=== PATIENT | female | born 1950 | race Caucasian/White ===

== ENCOUNTER 2023-05-19 19:00 | Inpatient (IN) | payer OTHER, SELFPAY ==
[2023-05-19] VITALS (10 sets, daily range): BP systolic 83–147; BP diastolic 36–89; BMI 22.8; BMI 22.3
[2023-05-19 13:15] LABS: % Basophils 0.3 % (0-2); % Eosinophils 1.2 % (0-6); % Immature Granulocytes 0.4 % (0-0.5); % Lymphocytes 12.5 % (20.5-51.1); % Monocytes 10.5 % (1.7-9.3); % Neutrophils 75.1 % (42.2-75.2); Absolute Eosinophils 0.1 10^3/uL (0-0.7); Absolute Lymphocytes 1.2 10^3/uL (1.2-3.4); Absolute Neutrophils 6.9 10^3/uL (1.4-6.5); Hematocrit 32.5 % (37.0-47.0); Hemoglobin 11.7 g/dL (12.0-16.0); Mean Corpuscular Hgb 30.1 pg (27.0-31.0); Mean Corpuscular Volume 83.5 fL (81.0-99.0); Mean Platelet Volume 10.1 fL (7.4-10.4); Nucleated Red Blood Cells % 0 %; Platelet Count 205 10^3/uL (130-400); Red Blood Cell Count 3.89 10^6/uL (4.20-5.40); Red Cell Dist. Width 14.6 % (11.5-14.5); White Blood Cell Count 9.2 10^3/uL (4.8-10.8)
[2023-05-19 13:36] LABS: ALT (SGPT) 18 U/L (0-35); AST (SGOT) 21 U/L (14-36); Albumin 3.5 g/dl (3.5-5.0); Alkaline Phosphatase 88 U/L (38-126); Blood Urea Nitrogen 14 mg/dl (7-17); Calcium 9.3 mg/dl (8.4-10.2); Carbon Dioxide 28 mmol/L (22-30); Chloride 100 mmol/L (98-107); Estimated Creatinine Clearance 39 ml/min; Glucose 104 mg/dl (70-99); Potassium 3.9 mmol/L (3.5-5.1); Sodium 129 mmol/L (135-145); Total Bilirubin 1.7 mg/dl (0.2-1.3); Total Protein 5.9 g/dl (6.3-8.2); eGFR > 60.00
[2023-05-19] MEDS: NSS 1000 IV ×2 (13:36→20:41)
[2023-05-19] MEDS: OMNIPAQUE 50 ML PO (13:36)
[2023-05-19 13:58] LABS: Lactic Acid 0.9 mmol/L (0.7-2.0)
--- NOTE | 2023-05-19 14:41 | ED.GENMED ---
History of Present Illness
<Brendon Walsh Jr., PA-C - Last Filed: 05/19/23 18:04>
General
Chief Complaint: Rectal Bleeding
Source: patient and spouse
Exam Limitations: none
Time Seen by Provider: 05/19/23 13:03
Nursing documentation reviewed up to this point in time: agreed with
Travel History
Have you had any contact with someone who has COVID-19?: No
Do you have any symptoms of coronavirus? Fever > 100 degrees, chills, cough, shortness of breath, sore throat, loss of taste or smell, muscle aches, or headache?: No
History of Present Illness
History of Present Illness:
73-year-old female with past medical history of previous stroke, hypertension hyperlipidemia, anxiety presenting to the emergency department today with concerns of diarrhea over the past week also noticed blood streaking in the stool today. Patient
is on Eliquis. Denies significant abdominal pain has had some intermittent crampy discomfort. Denies any fevers nausea or vomiting.
Past History
<Brendon Walsh Jr., PA-C - Last Filed: 05/19/23 18:04>
Past History
ED Past Medical History: CVA, HTN and Other (Sleep apnea)
ED Past Surgical History:
Social History
Tobacco: Former smoker
Alcohol: Occasional
Drug: None
Living: with family
Employment: Employed
Family History
Family History: Other
Review of Systems
<ADALBERTO Mar Jr. Last Filed: 05/19/23 18:04>
Review of Systems
Allergies reviewed?: Yes
All Other Systems: ROS reviewed and negative except as documented in HPI and ROS
Phy Exam
<ADALBERTO Mar Jr. Last Filed: 05/19/23 18:04>
Physical Exam
Physical Exam:
GENERAL: Alert , in no apparent distress
EYE: pupils equal and reactive
NECK: Supple, no significant adenopathy.
ENT: o/p clr, mmm.
CARDIAC: Regular rate and rhythm .
LUNGS: Clear breath sounds bilaterally, no acute respiratory distress, no wheezes/rales/rhonchi
ABDOMEN: Rectal examination revealing light brown stool with pink tinge positive for guaiac. Soft, without focal tenderness, no r/g, no cvat
NEUROLOGICAL: Alert and oriented, no focal neuro deficits
SKIN: Warm and dry, skin intact.
MUSCULOSKELETAL: No edema, well perfused.
PSYCH: Normal and appropriate interaction.
Course
<Brendon Walsh Jr., PA-Alida - Last Filed: 05/19/23 18:04>
Orders/Labs/Results
Orders:
Orders
05/19/23 13:06
Complete Blood Count/With Diff Urgent
Comprehensive Metabolic Panel Urgent
05/19/23 13:31
CT Abd/pel W Iv And Oral Contr Urgent
Comment:
Reason For Exam: abd pain bloody diarrhea
Iohexol [Omnipaque] See Protocol PO NOW STA
05/19/23 13:32
0.9% Sodium Chloride 1000 ml [Nss] 1,000 ml IV BOLUS
05/19/23 13:34
Type+Screen Urgent
Lactic Acid Urgent
05/19/23 14:58
Urinalysis Reflex To Culture Urgent
Date Specimen was Collected: 05/19/23
Time Specimen was Collected: 14:57
Urine Microscopic Reflex Cult Urgent
05/19/23 15:07
C DIFF [C difficile Antigen & Toxins] Urgent
KALYAN Source: Feces/Stool
Specimen Description:
Date Specimen was Collected: 05/19/23
Time Specimen was Collected: 15:05
Stool Culture Urgent
KALYAN Source: Feces/Stool
Specimen Description:
Date Specimen was Collected: 05/19/23
Time Specimen was Collected: 15:05
05/19/23 17:51
Zosyn 3.375 grams IVPB NOW Piperacillin/Tazo 3.375 Gram [Zosyn] 3.375 gram in 50 ml IV NOW
Abnormal Lab Results
05/19/23 05/19/23
13:06 14:58
RBC 3.89 L 10^6/uL
(4.20-5.40)
Hgb 11.7 L g/dL
(12.0-16.0)
Hct 32.5 L %
(37.0-47.0)
RDW 14.6 H %
(11.5-14.5)
Absolute Neuts (auto) 6.9 H 10^3/uL
(1.4-6.5)
Absolute Monos (auto) 1.0 H 10^3/uL
(0.1-0.6)
Lymphocytes % 12.5 L %
(20.5-51.1)
Monocytes % 10.5 H %
(1.7-9.3)
Sodium 129 L mmol/L
(135-145)
Glucose 104 H mg/dl
(70-99)
Total Bilirubin 1.7 H mg/dl
(0.2-1.3)
Total Protein 5.9 L g/dl
(6.3-8.2)
Ur Occult Blood Reflex Trace A
(Negative)
Urine Bacteria (Reflex) Few A
(Negative)
05/19/23 13:06
05/19/23 13:06
Vital Signs
Initial and Last Documented VS:
Initial Vital Signs
Temp Pulse Resp BP Pulse Ox
98.7 F 76 14 99/61 97
05/19/23 12:57 05/19/23 12:57 05/19/23 12:57 05/19/23 12:57 05/19/23 12:57
Last Documented Vital Signs
Temp Pulse Resp BP Pulse Ox
98.7 F 77 10 139/89 99
05/19/23 12:57 05/19/23 15:45 05/19/23 17:31 05/19/23 17:31 05/19/23 17:31
<David Velez, DO - Last Filed: 05/19/23 14:46>
Orders/Labs/Results
Orders:
Orders
05/19/23 13:06
Complete Blood Count/With Diff Urgent
Comprehensive Metabolic Panel Urgent
05/19/23 13:31
CT Abd/pel W Iv And Oral Contr Urgent
Comment:
Reason For Exam: abd pain bloody diarrhea
Iohexol [Omnipaque] See Protocol PO NOW STA
05/19/23 13:32
0.9% Sodium Chloride 1000 ml [Nss] 1,000 ml IV BOLUS
05/19/23 13:34
Type+Screen Urgent
Lactic Acid Urgent
05/19/23 14:58
Urinalysis Reflex To Culture Urgent
Date Specimen was Collected: 05/19/23
Time Specimen was Collected: 14:57
Urine Microscopic Reflex Cult Urgent
05/19/23 15:07
C DIFF [C difficile Antigen & Toxins] Urgent
KALYAN Source: Feces/Stool
Specimen Description:
Date Specimen was Collected: 05/19/23
Time Specimen was Collected: 15:05
Stool Culture Urgent
KALYAN Source: Feces/Stool
Specimen Description:
Date Specimen was Collected: 05/19/23
Time Specimen was Collected: 15:05
05/19/23 17:51
Zosyn 3.375 grams IVPB NOW Piperacillin/Tazo 3.375 Gram [Zosyn] 3.375 gram in 50 ml IV NOW
Abnormal Lab Results
05/19/23 05/19/23
13:06 14:58
RBC 3.89 L 10^6/uL
(4.20-5.40)
Hgb 11.7 L g/dL
(12.0-16.0)
Hct 32.5 L %
(37.0-47.0)
RDW 14.6 H %
(11.5-14.5)
Absolute Neuts (auto) 6.9 H 10^3/uL
(1.4-6.5)
Absolute Monos (auto) 1.0 H 10^3/uL
(0.1-0.6)
Lymphocytes % 12.5 L %
(20.5-51.1)
Monocytes % 10.5 H %
(1.7-9.3)
Sodium 129 L mmol/L
(135-145)
Glucose 104 H mg/dl
(70-99)
Total Bilirubin 1.7 H mg/dl
(0.2-1.3)
Total Protein 5.9 L g/dl
(6.3-8.2)
Ur Occult Blood Reflex Trace A
(Negative)
Urine Bacteria (Reflex) Few A
(Negative)
05/19/23 13:06
05/19/23 13:06
Vital Signs
Initial and Last Documented VS:
Initial Vital Signs
Temp Pulse Resp BP Pulse Ox
98.7 F 76 14 99/61 97
05/19/23 12:57 05/19/23 12:57 05/19/23 12:57 05/19/23 12:57 05/19/23 12:57
Last Documented Vital Signs
Temp Pulse Resp BP Pulse Ox
98.7 F 77 10 139/89 99
05/19/23 12:57 05/19/23 15:45 05/19/23 17:31 05/19/23 17:31 05/19/23 17:31
<Brendon Walsh Jr., PA-C - Last Filed: 05/19/23 18:04>
MDM/Problems Addressed
MDM/Problems Addressed:
73-year-old female presenting to the emergency department today with concerns of ongoing diarrhea over the past week. Seemingly somewhat improving had multiple episodes a day but this morning noticed blood in her stool. Denies significant pain at
this point has had some mild intermittent cramping. Denies any lightheadedness on arrival here vital signs showing slightly low blood pressure in the 90s over 60s but otherwise vital signs are normal. Patient generally well-appearing. Abdominal
examination benign. Patient's stool was light brown with pink tinge guaiac positive. CT scan showing pancolitis negative for the initial C. difficile testing sodium 129. Patient treated with antibiotics empirically and will be admitted for
further monitoring.
<Brendon Walsh Jr., PA-C - Last Filed: 05/19/23 18:04>
*Critical Care Note
Total Time (30-74mins, 75-104mins- exclusive of procedures): Not Applicable
ED Attending Note
<Brendon Walsh Jr., PA-C - Last Filed: 05/19/23 18:04>
-
Portions of this chart may have been created with voice recognition software.� Occasional wrong word or��sound alike� substitutions may have occurred due to the inherent limitations of voice recognition software.
<David Velez DO - Last Filed: 05/19/23 14:46>
ED Attending Note
Patient seen and examined by attending physician: Yes
I performed the substantive portion of visit, reviewed & personally made and approve the management plan that is documented in note by myself or DANIS.: Yes
ED Attending Note:
I have seen and evaluated the patient with a [id number] encounter. I have spoken to the advance practicer provider and involved in the medical history, the physical exam, medical decision making.
Evaluation and management service: agree unless noted differently below.
Results interpretation: agree unless noted differently below.
Focused HPI: 73-year-old female presenting with diarrhea for the past week. Patient is now noticing evidence of blood in the diarrhea. She denies any abdominal pain or fevers
Physical exam: Sitting in bed comfortably. Mildly dry mucous membranes. No significant abdominal tenderness noted
Medical Decision Making: Given her history, will obtain CT abdomen/pelvis. Hemoglobin stable. Will obtain stool studies
Discharge Plan
Departure
Patient Disposition: Admit
Date of Disposition: 05/19/23
Time of Disposition: 18:03
Admit to: Med/Surg
Admit to doctor: Christian
Presentation/result/management discussed w/ accepting MD/DO: Hospitalist
Patient with high blood pressure during this ER visit?: No
Condition: Good
Covid-19: Not Applicable
Discharge Problem:
Pancolitis, GI bleed
Prescriptions:
No Action
polyethylene glycol 3350 17 gram Powder In Packet
17 g PO DAILY PRN (Reason: constipation)
miconazole nitrate 2 % Cream
1 applic TOPICAL BID PRN (Reason: irritation)
metoprolol succinate 50 mg Tablet Extended Release 24 Hr
50 mg PO DAILY
loperamide [Imodium A-D] 2 mg Tablet
2 mg PO Q8HPRN PRN (Reason: loose stools)
guaifenesin [Tussin] 100 mg/5 mL Liquid
200 mg PO Q4H PRN (Reason: cough)
hydrocortisone [Proctozone-HC] 2.5 % Cream With Perineal Applicator
1 applic ID .2-4 TIMES A DAY PRN (Reason: hemorrhoids)
lorazepam 0.5 mg Tablet
0.5 mg PO HS
magnesium hydroxide [Milk of Magnesia] 400 mg/5 mL Suspension
30 ml PO DAILY PRN (Reason: if no BM for 3 days)
calcium carbonate [Oyster Shell Calcium 500] 500 mg calcium (1,250 mg) Tablet
500 mg PO DAILY
trazodone 150 mg Tablet
150 mg PO HS
docusate sodium 100 mg Capsule
100 mg PO BID PRN (Reason: constipation)
oxycodone 5 mg Tablet
5 mg PO Q6H PRN (Reason: moderate pain)
Patient Comments:
05/19/2023, for up to 5 days.
escitalopram oxalate 10 mg Tablet
10 mg PO DAILY
cholecalciferol (vitamin D3) 25 mcg (1,000 unit) Tablet
25 mcg PO DAILY
Myrbetriq 50 mg Tablet Extended Release 24 Hr
50 mg PO DAILY
Eliquis 5 mg Tablet
5 mg PO Q12H@0800,2100
naloxone 4 mg/actuation [place],Non-Aerosol
1 spray INTRANASAL Q2M PRN (Reason: opioid overdose)
atorvastatin 80 MG tablet
80 mg PO HS
acetaminophen 325 MG tablet
650 mg PO Q6HPRN MDD 3000 mg PRN (Reason: mild pain)
cyanocobalamin (vitamin B-12) 1,000 MCG tablet
1,000 mcg PO DAILY Qty: 90 0RF
losartan 100 MG tablet
100 mg PO DAILY Qty: 90 0RF
melatonin 5 MG tablet
5 mg PO HS Qty: 90 0RF
Referrals:
Jolly Paul PA-C [Family Provider] -
Interventions
Interventions:
*Risk Screen - Suicide Last Done: 05/19/23 12:57
*General Assessment Last Done: 05/19/23 12:57
*Neglect/Abuse Screening Last Done: 05/19/23 12:57
ED- Fall Risk Assessment Last Done: 05/19/23 13:03
IG-Ntgxyt-Emxwuzuoou Assessment Last Done: 05/19/23 13:01
ED- Cardiac Assessment Last Done: 05/19/23 13:01
ED- Pulmonary Assessment Last Done: 05/19/23 13:01
[2023-05-19 15:12] LABS: Urine Albumin Negative (Neg - Trace); Urine Bilirubin Negative (Negative); Urine Character Clear (Clear); Urine Color Straw; Urine Glucose Negative (Negative); Urine Ketone Negative (Negative); Urine Leukocyte Negative (Negative); Urine Nitrite Negative (Negative); Urine Occult Blood Trace (Negative); Urine Specific Gravity 1.005 (<1.030); Urine Urobilinogen Negative (Neg - 1+)
[2023-05-19 15:19] LABS: Urine Bacteria Few (Negative); Urine Red Blood Cell 0-2 /HPF (0-2); Urine Squamous Cell 0-2 /LPF (Few); Urine White Cell 0-2 /HPF (0-5)
[2023-05-19] MEDS: ZOSYN 50 IV (18:01)
--- NOTE | 2023-05-19 18:24 | HPS.HSE ---
Family Physician
-
Family Physician: Jolly Paul PA-C
Chief Complaint
-
Diarrhea, bloody stools
History of Present Illness
73-year-old female here with diarrhea for the past week with associated bloody stools. Anorexia. She is a very poor historian.
Lives in assisted living facility. Denies abdominal pain, nausea or vomiting.
Medical History
Past Medical History
Past Medical History: Reports Other
Additional Past Medical History:
Paroxysmal atrial fibrillation
Essential hypertension
Stroke with left hemiparesis
Hyperlipidemia
CHANELLE
Colon polyps
Anxiety disorder
Urgent incontinence
Past Surgical History: Reports
Social History
Tobacco: Former Smoker
Alcohol: None
Drug: None
Family History
Family History: Not pertinent
Allergies / Home Medications
Allergies reflects when Allergies were last updated in [employer].
Home Medications with original date entered in [employer]
Allergy/Medication List:
Allergies
Allergy/AdvReac Type Severity Reaction Status Date / Time
No Known Allergies Allergy Verified 01/28/21 23:37
Home Medications
cyanocobalamin (vitamin B-12) 1,000 mcg tablet 1,000 mcg PO DAILY #90 tabs 12/25/20
losartan 100 mg tablet 100 mg PO DAILY #90 tabs 12/25/20
melatonin 5 mg tablet 5 mg PO HS #90 tabs 12/25/20
acetaminophen 325 mg tablet 650 mg PO Q6HPRN PRN mild pain 05/19/23
apixaban 5 mg tablet (Eliquis) 5 mg PO Q12H@0800,2100 05/19/23
atorvastatin 80 mg tablet 80 mg PO HS 05/19/23
calcium carbonate 500 mg calcium (1,250 mg) tablet (Oyster Shell Calcium 500) 500 mg PO DAILY 05/19/23
cholecalciferol (vitamin D3) 25 mcg (1,000 unit) tablet 25 mcg PO DAILY 05/19/23
docusate sodium 100 mg capsule 100 mg PO BID PRN constipation 05/19/23
escitalopram oxalate 10 mg tablet 10 mg PO DAILY 05/19/23
guaifenesin 100 mg/5 mL oral liquid (Tussin) 200 mg PO Q4H PRN cough 05/19/23
hydrocortisone 2.5 % topical cream with perineal applicator (Proctozone-HC) 1 applic LA .2-4 TIMES A DAY PRN hemorrhoids 05/19/23
loperamide 2 mg tablet (Imodium A-D) 2 mg PO Q8HPRN PRN loose stools 05/19/23
lorazepam 0.5 mg tablet 0.5 mg PO HS 05/19/23
magnesium hydroxide 400 mg/5 mL oral suspension (Milk of Magnesia) 30 ml PO DAILY PRN if no BM for 3 days 05/19/23
metoprolol succinate 50 mg tablet,extended release 24 hr 50 mg PO DAILY 05/19/23
miconazole nitrate 2 % topical cream 1 applic topical BID PRN irritation 05/19/23
mirabegron 50 mg tablet,extended release 24 hr (Myrbetriq) 50 mg PO DAILY 05/19/23
naloxone 4 mg/actuation nasal spray 1 spray intranasal Q2M PRN opioid overdose 05/19/23
oxycodone 5 mg tablet 5 mg PO Q6H PRN moderate pain 05/19/23
polyethylene glycol 3350 17 gram oral powder packet 17 g PO DAILY PRN constipation 05/19/23
trazodone 150 mg tablet 150 mg PO HS 05/19/23
Review of Systems
-
History Source: Patient
A 12 point ROS was completed and negative except as noted: Yes
Abdomen/GI: Reports Diarrhea and Bloody Stools
Physical Exam
Vital Signs
Vital Signs
Temp Pulse Resp BP Pulse Ox
98.7 F 71 10 104/65 98
05/19/23 12:57 05/19/23 18:00 05/19/23 18:00 05/19/23 18:00 05/19/23 18:00
Physical Exam
General: Well Developed, Well Nourished, No Apparent Distress and Comfortable
HEENT: NormoCephalic, Anicteric and Moist mucous membranes
Respiratory: Clear
Cardiac: S1/S2 and Regular Rhythm
Breast: Deferred by me
GI: Soft, Non Tender and Non Distended
Genito-urinary: Deferred by me
Musculoskeletal: No Clubbing, No Cyanosis and No Edema
Skin: Warm and Dry
Neuro: AO x 3
Hematologic/Lymphatic: No Lymphadenopathy
Psych: Calm
Laboratory Results
-
05/19/23 13:06
05/19/23 13:06
Laboratory Results
Lactic Acid 0.9 mmol/L (0.7-2.0) 05/19/23 13:34
Total Bilirubin 1.7 mg/dl (0.2-1.3) H 05/19/23 13:06
AST 21 U/L (14-36) 05/19/23 13:06
ALT 18 U/L (0-35) 05/19/23 13:06
Alkaline Phosphatase 88 U/L (38-126) 05/19/23 13:06
Impression/Plan
-
Acute colitis -likely infectious in nature. Less likely to be inflammatory. Admit to telemetry, clear liquid diet, continue antibiotics, check stool studies. Stool for C. difficile toxin negative.
CT abdomen pelvis shows moderate pancolitis.
Incidental subpleural left lower lobe groundglass pulmonary nodule measuring 6 mm. Will need repeat noncontrast CT in 6 to 12 months as an outpatient.
Acute lower GI bleed -due to acute colitis. Hemodynamically stable after IV fluid administration in the emergency room. Presented initially hypotensive.
Hyponatremia -likely hypovolemic. Normal saline IV fluids ordered. Recheck labs tomorrow.
Paroxysmal atrial fibrillation -hold Eliquis tonight in light of GI bleed.
Chronic normocytic anemia -currently hemoglobin appears to be at baseline. Monitor for now.
History of stroke with left hemiparesis -associated ambulatory dysfunction. Consult PT/OT. She resides at an assisted living facility.
Essential hypertension -stable.
Hyperlipidemia -continue Lipitor.
Full code
Updated patient's son at the bedside.
[2023-05-19] MEDS: ATIVAN 0.5 MG PO (21:05)
[2023-05-19] MEDS: DESYREL 150 MG PO (21:05)
[2023-05-19] MEDS: MELATONIN 5 MG PO (21:05)
[2023-05-19] MEDS: LIPITOR 80 MG PO (21:06)
[2023-05-19] MEDS: NSS 250 IV (23:39)
[2023-05-19 23:59] LABS: Hematocrit 28.3 % (37.0-47.0); Hemoglobin 10.2 g/dL (12.0-16.0)
[2023-05-20] VITALS (82 sets, daily range): BP systolic 72–163; BP diastolic 34–90; PULSE 77; BMI 22.6
[2023-05-20] MEDS: ZOSYN 50 IV ×5 (01:16→23:53)
[2023-05-20] MEDS: NSS 250 IV (01:42)
[2023-05-20 02:12] LABS: Hematocrit 27.4 % (37.0-47.0); Hemoglobin 9.8 g/dL (12.0-16.0); Mean Corp Hgb Conc. 35.8 g/dL (33.0-37.0); Mean Corpuscular Hgb 29.8 pg (27.0-31.0); Mean Corpuscular Volume 83.3 fL (81.0-99.0); Mean Platelet Volume 9.8 fL (7.4-10.4); Platelet Count 177 10^3/uL (130-400); Red Blood Cell Count 3.29 10^6/uL (4.20-5.40); Red Cell Dist. Width 14.4 % (11.5-14.5); White Blood Cell Count 5.9 10^3/uL (4.8-10.8)
[2023-05-20 02:23] LABS: Lactic Acid 0.6 mmol/L (0.7-2.0)
[2023-05-20 02:28] LABS: ALT (SGPT) 12 U/L (0-35); AST (SGOT) 15 U/L (14-36); Albumin 2.4 g/dl (3.5-5.0); Alkaline Phosphatase 67 U/L (38-126); Blood Urea Nitrogen 15 mg/dl (7-17); Calcium 8.6 mg/dl (8.4-10.2); Carbon Dioxide 23 mmol/L (22-30); Chloride 103 mmol/L (98-107); Estimated Creatinine Clearance 30 ml/min; Glucose 68 mg/dl (70-99); Potassium 3.8 mmol/L (3.5-5.1); Sodium 135 mmol/L (135-145); Total Bilirubin 1.7 mg/dl (0.2-1.3); Total Protein 4.5 g/dl (6.3-8.2)
[2023-05-20] MEDS: ProAmatine 10 MG PO ×4 (03:08→17:17)
--- NOTE | 2023-05-20 03:34 | W.PN.UPDATE ---
Update Note
Progress Note Update
At 2330 RN notified PLODDING OPERATOR of low BP 81/44 HR 64, Patient slightly drowsy, denies dizziness, Received Ativan, Trazodone, and melatonin at HS prior low BP. stable H/H. received NSS IV bolus 500CC, Repeat Labs done, lactic acid wnl. HH may be diluted at
MN. no active bleeding. Creatinine 1.2, will continue NSS 125cc/hr. will hold ARB's, Hold parameters on Metoprolol, Will add Midodrine 10mg PO stat. Also advised RN to give apple juice to patient as noted blood sugar noted at 68.
At 0400 BP noted to be 85/35 MAP 52, will upgrade patient to IMU, will place patient on Levophed drip. Nursing parachute supervisor made aware.
--- NOTE | 2023-05-20 04:26 | PTCARENOTE ---
Patient with hypotension throughout the night. Patient was receiving fluids 80ml/hr NSS. Patient is denies abdominal pain, chest pain, dizziness, or any symptoms, just drowsy but AAOx3 and talking with this nurse. Discussed with [employer]. Ordered two
boluses of NSS 250ml, given see MAR. Blood pressure without much change into the 80s/40s. IVF increased from 80 to 125 ml/hr per order. [employer] ordered midodrine 10mg PO. See MAR. Recheck blood pressure an hour later, still in 70-80s/40s. Patient being
transferred to IMU level to be placed on levophed.
[2023-05-20 04:47] LABS: Glucose - Point of Care 99 mg/dl (70-99)
[2023-05-20] MEDS: LEVOPHED 250 IV ×2 (05:15→21:44)
--- NOTE | 2023-05-20 05:15 | PTCARENOTE ---
Rec'd pt from 2 N via bed on monitor accomp by RN, oriented to routine, CHG bath done, Left side weak from previous CVA, SR/ SB, levophed gtt started at 2 suzi- to keep MAP > 65- see flow sheet for titrations, + pulses, skin warm/dry, RA, lungs decr
in bases, sat 95, + bowel sounds, rectal trmpet inserted for liquid brown stool, HNV- just was str cathed on floor
[2023-05-20] MEDS: NSS 1000 IV ×3 (07:43→17:16)
--- NOTE | 2023-05-20 07:53 | PTCARENOTE ---
Pt's contact Rufino notified that she was upgraded and is in room 3760. He is aware her blood pressure was persistently low and require IVF and Norepinephrine drip.
--- NOTE | 2023-05-20 08:15 | W.PN.HOSP.TC ---
Today's Communication/Plan
-
Continue IV fluids
Advance diet to full liquids
Midodrine [id number]
Wean Levophed
Assessment / Plan
Assessment / Plan
Gen-AAOx3, NAD
HEENT-NC, AT, anicteric, clear oral mm
Neck-supple
CV-reg, no M, +S1/S2
Lungs-clear B/L
Abd-soft, NT, ND
Ext-no edema
Musculoskeletal-no cyanosis, clubbing
Skin-warm and dry
Neuro-grossly non-focal
Psych-calm, cooperative
Hypovolemic shock -due to GI losses due to acute colitis. Transferred to IMU last night on low-dose Levophed. Try to wean Levophed off. Start midodrine [id number]. Discussed with nursing. Continue IV fluids. Blood pressure overall
improving. Not tachycardic.
Acute colitis -likely infectious in nature.� Less likely to be inflammatory.� Stool for C. difficile toxin negative. Stool culture pending.
CT abdomen pelvis shows moderate pancolitis.
Incidental subpleural left lower lobe groundglass pulmonary nodule measuring 6 mm.� Will need repeat noncontrast CT in 6 to 12 months as an outpatient.
Acute lower GI bleed -due to acute colitis.� Last colonoscopy was March 2019, showed multiple polyps. Path report came back with tubular adenomas as well as hyperplastic polyp. Will refer to GI after discharge.
Acute blood loss anemia -due to acute GI bleed due to acute colitis. Hemoglobin 9.8 this morning. Monitor for now. She does have baseline chronic anemia, normocytic.
Hyponatremia -likely hypovolemic.� Sodium improved.
Paroxysmal atrial fibrillation -hold Eliquis for acute GI bleed, acute anemia.
History of stroke with left hemiparesis -associated ambulatory dysfunction.� Consult PT/OT.� She resides at an assisted living facility.
Essential hypertension -stable. Hold antihypertensives for hypotension.
Hyperlipidemia -continue Lipitor.
Full code
Anticipated Discharge: 24 - 48 hours
Subjective/Interval History
-
Date of Service: May 20, 2023
Patient seen and examined. No complaints.
Objective Data
-
Labs:
Laboratory Results
05/19/23 05/20/23 05/20/23
23:53 02:00 02:00
WBC Cancelled 5.9
Hgb 10.2 L Cancelled
Hct 28.3 L
Plt Count
PT
INR
APTT
Sodium
Potassium
Chloride
Carbon Dioxide
BUN
Creatinine
Glucose
Calcium
Total Bilirubin
AST
ALT
Alkaline Phosphatase
05/20/23 05/20/23 05/20/23
02:00 02:00 02:00
WBC
Hgb 9.8 L
Hct Cancelled 27.4 L
Plt Count Cancelled 177
PT
INR
APTT
Sodium Cancelled
Potassium
Chloride
Carbon Dioxide
BUN
Creatinine
Glucose
Calcium
Total Bilirubin
AST
ALT
Alkaline Phosphatase
05/20/23 05/20/23 05/20/23
02:00 02:00 02:00
WBC
Hgb
Hct
Plt Count
PT
INR
APTT
Sodium 135
Potassium Cancelled 3.8
Chloride Cancelled 103
Carbon Dioxide Cancelled
BUN
Creatinine
Glucose
Calcium
Total Bilirubin
AST
ALT
Alkaline Phosphatase
05/20/23 05/20/23 05/20/23
02:00 02:00 02:00
WBC
Hgb
Hct
Plt Count
PT
INR
APTT
Sodium
Potassium
Chloride
Carbon Dioxide 23
BUN Cancelled 15
Creatinine Cancelled 1.2 H
Glucose Cancelled
Calcium
Total Bilirubin
AST
ALT
Alkaline Phosphatase
05/20/23 05/20/23 05/20/23
02:00 02:00 02:00
WBC
Hgb
Hct
Plt Count
PT
INR
APTT
Sodium
Potassium
Chloride
Carbon Dioxide
BUN
Creatinine
Glucose 68 L
Calcium Cancelled 8.6
Total Bilirubin Cancelled 1.7 H
AST Cancelled
ALT
Alkaline Phosphatase
05/20/23 05/20/23 05/20/23
02:00 02:00 02:00
WBC
Hgb
Hct
Plt Count
PT
INR
APTT
Sodium
Potassium
Chloride
Carbon Dioxide
BUN
Creatinine
Glucose
Calcium
Total Bilirubin
AST 15
ALT Cancelled 12
Alkaline Phosphatase Cancelled 67
05/20/23
08:00
WBC Cancelled
Hgb Cancelled
Hct Cancelled
Plt Count Cancelled
PT Pending
INR Pending
APTT Pending
Sodium Cancelled
Potassium Cancelled
Chloride Cancelled
Carbon Dioxide Cancelled
BUN Cancelled
Creatinine Cancelled
Glucose Cancelled
Calcium Cancelled
Total Bilirubin
AST
ALT
Alkaline Phosphatase
Vital Signs:
Vital Signs
Temp Pulse Resp BP Pulse Ox
98.8 F 58 14 120/53 97
05/20/23 05:34 05/20/23 07:45 05/20/23 07:45 05/20/23 07:45 05/20/23 07:45
I&O
05/19/23 05/20/23 05/21/23
06:59 06:59 06:59
Intake Total 197.5 / 360.0 162.5 / 162.5
Output Total 500 / 500
Balance -302.5 / -140.0 162.5 / 162.5
Review of Systems
-
History Source: Patient
All other systems: Reviewed and negative
--- NOTE | 2023-05-20 08:45 | PTCARENOTE ---
Received pt in Enhanced precautions. SHe is awake and alert. Slight slurred speech, however her oral mucosa is dry. Right FA#20g protective catheter with Levophed and right hand #22g protective catheter with 0.9NSS. She has left hemiparesis. She
stated she can do leg lifts but dorene able to bend her leg herself. She is dependent on her right U/E for ADL's. Unable to palpate her left DP pulse but able to palpate her Left PT pulse. Capillary refill slightly delayed on her L/E's. Breath sounds
CTA. Hyperactive BSX4. Nasal trumpet to rectum draining liquid brown stool. Calazime cream applied. Heels elevated on pillows. Repositioned. Discussed the plan of care with Dr. Gonzales. Pt is informed of the plan of care. Safe environment
maintained.
[2023-05-20] MEDS: DETROL LA 4 MG PO (09:48)
[2023-05-20] MEDS: VITAMIN B-12 1000 MCG PO (09:48)
[2023-05-20] MEDS: VITAMIN D3 (cholecalciferol) 25 MCG PO (09:48)
[2023-05-20] MEDS: OSCAL CAL 500 500 MG PO (09:48)
[2023-05-20] MEDS: LEXAPRO 10 MG PO (09:48)
--- NOTE | 2023-05-20 11:00 | PTCARENOTE ---
No changes, Lungs remain CTA and diminished in the bases. Nasal trumpet MD intact. No liquid BM at this time.Tolerated full liquid diet. Safe environment maintained.
--- NOTE | 2023-05-20 12:22 | CM ---
CM following re: discharge planning.
Discussed in rounds, reviewed pt's chart, met with pt.
Pt is a 73 year old female, admitted with primary dx of Acute Colitis.
Pt reports she has been living at [facility] since 2011, has 5 living children, daughter due to Leucemia. Emotional support offered and provided. Pt reports she mostly uses a wheelchair, has a walker, able to transfer herself from a
bed to a chair, whealing herself to the bathroom and calling call Jara when she needs help. Pt reports she has been receiving private PT sessions. Pt made a strong request she will not go to any SNF and she made it very clear her plan is to return
back to [facility] with VN services and private PT.
PCP: Estrellita Hoffman
Pharmacy: [facility].
D/C plan: pt requested returning back to [facility] with VN services and resumptions of private PT.
CM will follow with discharge plan updates as hospitalization progresses
[2023-05-20] MEDS: LOVENOX 30 MG SC (17:17)
--- NOTE | 2023-05-20 18:23 | PTCARENOTE ---
Diarrhea subsiding. Nasal trumpet removed. Pericare given and purwick placed. Pt's son brought her Dennis-walker in from home. They were updated on the plan of care and the possibility of moving down the gaming to IMU.
--- NOTE | 2023-05-20 20:00 | PTCARENOTE ---
Assumed care of patient at 1900. Pt. currently in bed. Awake, alert, and oriented. Denies any pain or discomfort at this time. Cardiac rhythm is sinus. Levophed gtt infusing to maintain MAP >65. Pt. currently on room air. Lungs sound diminished.
Full liquid diet ordered, pt. has good appetite. Purewick in place, pt. voiding without issue. Skin as documented. Discussed plan of care. Vital signs stable at this time.
[2023-05-20] MEDS: LIPITOR 80 MG PO (20:59)
[2023-05-20] MEDS: ATIVAN 0.5 MG PO (20:59)
[2023-05-20] MEDS: DESYREL 150 MG PO (20:59)
[2023-05-20] MEDS: MELATONIN 5 MG PO ×2 (20:59)
[2023-05-21] VITALS (22 sets, daily range): BP systolic 80–149; BP diastolic 49–80; BMI 22.9
--- NOTE | 2023-05-21 00:09 | PTCARENOTE ---
Pt. assessment unchanged. Levophed gtt infusing to maintain MAP >65. Pt. appears to be sleeping comfortably. Vital signs stable at this time.
--- NOTE | 2023-05-21 04:00 | PTCARENOTE ---
Pt. assessment remains unchanged. Levophed gtt infusing. Will draw AM labs. Vital signs stable at this time.
[2023-05-21 05:00] LABS: % Basophils 0.2 % (0-2); % Eosinophils 3.1 % (0-6); % Immature Granulocytes 0.3 % (0-0.5); % Lymphocytes 34.4 % (20.5-51.1); % Monocytes 8.2 % (1.7-9.3); % Neutrophils 53.8 % (42.2-75.2); Absolute Eosinophils 0.2 10^3/uL (0-0.7); Absolute Monocytes 0.5 10^3/uL (0.1-0.6); Absolute Neutrophils 3.1 10^3/uL (1.4-6.5); Hematocrit 28.5 % (37.0-47.0); Hemoglobin 9.9 g/dL (12.0-16.0); Mean Corp Hgb Conc. 34.7 g/dL (33.0-37.0); Mean Corpuscular Hgb 29.8 pg (27.0-31.0); Mean Corpuscular Volume 85.8 fL (81.0-99.0); Nucleated Red Blood Cells % 0 %; Platelet Count 186 10^3/uL (130-400); Red Blood Cell Count 3.32 10^6/uL (4.20-5.40); Red Cell Dist. Width 14.7 % (11.5-14.5); White Blood Cell Count 5.8 10^3/uL (4.8-10.8)
[2023-05-21 05:27] LABS: ALT (SGPT) 14 U/L (0-35); AST (SGOT) 21 U/L (14-36); Albumin 2.5 g/dl (3.5-5.0); Alkaline Phosphatase 61 U/L (38-126); Blood Urea Nitrogen 9 mg/dl (7-17); Calcium 8.1 mg/dl (8.4-10.2); Carbon Dioxide 25 mmol/L (22-30); Chloride 111 mmol/L (98-107); Estimated Creatinine Clearance 39 ml/min; Glucose 105 mg/dl (70-99); Potassium 3.6 mmol/L (3.5-5.1); Sodium 136 mmol/L (135-145); Total Protein 4.7 g/dl (6.3-8.2); eGFR > 60.00
[2023-05-21] MEDS: ZOSYN 50 IV ×4 (05:57→23:57)
--- NOTE | 2023-05-21 07:36 | W.PN.HOSP.TC ---
Addendum entered and electronically signed by Kaushik Gonzales DO 05/21/23 17:00:
I updated patient's son Rufino on the phone. All questions answered.
Anticipate discharge tomorrow if she remains stable. Will be going back to her assisted living facility. Patient not interested in SNF as per case management note. Rufino will arrange for transportation.
Addendum entered and electronically signed by Kaushik Gonzales DO 05/21/23 11:59:
Yes, GI bleed is related to/exacerbated by Eliquis
Original Note:
Today's Communication/Plan
-
Resume Eliquis
Advance diet as tolerated
Transfer to telemetry
Assessment / Plan
Assessment / Plan
Gen-AAOx3, NAD
HEENT-NC, AT, anicteric, clear oral mm
Neck-supple
CV-reg, no M, +S1/S2
Lungs-clear B/L
Abd-soft, NT, ND
Ext-no edema
Musculoskeletal-no cyanosis, clubbing
Skin-warm and dry
Neuro-grossly non-focal
Psych-calm, cooperative
Hypovolemic shock -due to GI losses due to acute colitis. Off vasopressors. Continue midodrine. Blood pressure relatively low while sleeping, does improve when she is awake according to nursing. Can transfer out of IMU today.
Acute colitis -likely infectious in nature.� Less likely to be inflammatory.� Stool for C. difficile toxin negative. Stool culture pending.
CT abdomen pelvis shows moderate pancolitis. Tolerating full liquid diet. Advance to low residue as tolerated.
Incidental subpleural left lower lobe groundglass pulmonary nodule measuring 6 mm.� Will need repeat noncontrast CT in 6 to 12 months as an outpatient.
Acute lower GI bleed -due to acute colitis.� Last colonoscopy was March 2019, showed multiple polyps. Path report came back with tubular adenomas as well as hyperplastic polyp. Will refer to GI after discharge.
Acute blood loss anemia -due to acute GI bleed due to acute colitis. Hemoglobin stable at 9.9 this morning. Monitor for now. She does have baseline chronic anemia, normocytic.
Hyponatremia -likely hypovolemic.� Sodium improved.
Paroxysmal atrial fibrillation -hemoglobin stable will therefore resume Eliquis.
History of stroke with left hemiparesis -associated ambulatory dysfunction.� Consult PT/OT.� She resides at an assisted living facility.
Essential hypertension -stable. Hold antihypertensives for hypotension.
Hyperlipidemia -continue Lipitor.
Full code
Dispo -monitor overnight, hopefully discharge tomorrow if stable.
Anticipated Discharge: Within 24 hours
Subjective/Interval History
-
Date of Service: May 21, 2023
Patient seen and examined. Currently no complaints. Denies diarrhea, denies abdominal pain.
Objective Data
-
Labs:
Laboratory Results
05/21/23 05/21/23
04:41 04:42
WBC 5.8
Hgb 9.9 L
Hct 28.5 L
Plt Count 186
Sodium 136
Potassium 3.6
Chloride 111 H
Carbon Dioxide 25
BUN 9
Creatinine 0.9
Glucose 105 H
Calcium 8.1 L
Total Bilirubin 1.0
AST 21
ALT 14
Alkaline Phosphatase 61
Vital Signs:
Vital Signs
Temp Pulse Resp BP Pulse Ox
98.7 F 65 13 103/55 97
05/21/23 04:00 05/21/23 07:30 05/21/23 07:30 05/21/23 07:01 05/21/23 07:30
I&O
05/20/23 05/21/23 05/22/23
06:59 06:59 06:59
Intake Total 197.5 / 360.0 3730.1 / 3730.1
Output Total 500 / 500 1900 / 1900
Balance -302.5 / -140.0 1830.1 / 1830.1
Review of Systems
-
History Source: Patient
All other systems: Reviewed and negative
[2023-05-21] MEDS: VITAMIN B-12 1000 MCG PO (08:06)
[2023-05-21] MEDS: DETROL LA 4 MG PO (08:06)
[2023-05-21] MEDS: ProAmatine 10 MG PO (08:06)
[2023-05-21] MEDS: VITAMIN D3 (cholecalciferol) 25 MCG PO (08:06)
[2023-05-21] MEDS: LEXAPRO 10 MG PO (08:07)
[2023-05-21] MEDS: OSCAL CAL 500 500 MG PO (08:07)
[2023-05-21] MEDS: ELIQUIS 5 MG PO ×2 (08:08→21:18)
--- NOTE | 2023-05-21 10:13 | PTCARENOTE ---
PT received in bed, PT AAOx3, cooperative, left sided weakness/paralysis do to previous stroke, left hand contracted at elbow, NSR + pulses no edema, room air, 98%, diminished and clear, abdomen soft, PT denies incontinence, cramps or pain,
hyperactive BS, Pure wick placed, hooked up to suction, 60-80 mmHg, removed right wrist INT due to pain, pressure dressing applied, report given to Amira YUEN @N, PT and all belongings transferred to room 2127
--- NOTE | 2023-05-21 10:19 | PTCARENOTE ---
pt transferred from ICU to this am. pt was assessed by this nurse and sarah Nam at the bedside. tele was placed and purewick is intact at this time. pt is aaox3 and was oriented to the call andino and telephone. pt has left side weakness from hx
of stroke. pt receiving IV zosyn this afternoon and is taking midodrine to help with hypotension. See MAR for proper documentation
--- NOTE | 2023-05-21 11:42 | PN.CDI ---
CDI
- -
CDI:
Physician Documentation Request
Admit Date: 05/19/23 19:00
Dear Doctor Christian,
Patient admitted for colitis.
05/20 Hospitalist PN: 'Hypovolemic shock -due to GI losses due to acute colitis...Acute blood loss anemia...hold Eliquis for acute GI bleed'
Home medication: Eliquis 5mg PO Q12
Please clarify the relationship between these conditions:
Yes, GI bleed is related to/exacerbated by Eliquis
No, GI bleed is not related to/exacerbated by Eliquis
Unable to determine
Use of terms such as suspected, likely, concern for, or probable (associated with a specific diagnosis that is being evaluated, monitored, or treated as if it exists) are acceptable and can be coded in the inpatient setting, when documented at the
time of discharge.
Thank you,
Wilma Pantoja RN, BSN
CDI Specialist
Available via [place] text
Please use your independent medical judgment in providing your response.
[2023-05-21] MEDS: TOPROL XL 50 MG PO (13:01)
--- NOTE | 2023-05-21 13:32 | PTCARENOTE ---
pt had run of tachycardia on the tele monitor. pt assessed the patient and she stated just feeling a fast heart beat. EKG was grabbed and vitals were taken. MD made aware and midodrine was held and changed to a prn for the blood pressure. pt blood
pressure was 149/74. Metoprolol Xl was given as a stat dose and added back to the patients daily medications. pt heart rate was back down in 80-90's and pt is currently NSR with a 71 HR.
--- NOTE | 2023-05-21 14:20 | CM ---
CM following re: discharge planning.
Reviewed pt's chart, met with pt. Pt is aware she possibly will be discharged tomorrow and she stated again she will return back to [facility] with home PT/OT. IMM reviewed, placed on chart, pt has a copy.
PT and OT evaluating noted - home PT vs SNF recommended. Pt strongly declined SNF level of care and requested to return back to [facility].
CM spoke to [facility] RN Ayanna and she confirmed that pt is wheelchair bound and pt will be accepted back when medically stable and a request to refer pt to [facility] made. Pt is referred to [facility].
Requested pt's clinical faxed to [facility] at [phone].
Pt stated she will talk to her sons to see whether or not they will be able to transport her to [facility] and if they cannot then an ambulance needs to be arranged.
For nursing report please call [facility] at [phone]
Please fax discharge instructions to:
[facility]: [phone].
[facility]: [phone]
D/C plan: return back to [facility] with [facility] and [facility] staff support.
CM will follow with discharge plan updates as hospitalization progresses
[2023-05-21] MEDS: LIPITOR 80 MG PO (21:18)
[2023-05-21] MEDS: ATIVAN 0.5 MG PO (21:18)
[2023-05-21] MEDS: DESYREL 150 MG PO (22:19)
[2023-05-21] MEDS: MELATONIN 5 MG PO (22:19)
[2023-05-22 00:09] VITALS: BP 116/67
[2023-05-22 03:27] VITALS: BP 130/66
[2023-05-22 04:57] LABS: % Basophils 0.2 % (0-2); % Eosinophils 3.3 % (0-6); % Immature Granulocytes 0.7 % (0-0.5); % Monocytes 7.5 % (1.7-9.3); % Neutrophils 58.3 % (42.2-75.2); Absolute Eosinophils 0.2 10^3/uL (0-0.7); Absolute Lymphocytes 1.8 10^3/uL (1.2-3.4); Absolute Monocytes 0.5 10^3/uL (0.1-0.6); Absolute Neutrophils 3.6 10^3/uL (1.4-6.5); Hematocrit 27.1 % (37.0-47.0); Hemoglobin 9.3 g/dL (12.0-16.0); Mean Corp Hgb Conc. 34.3 g/dL (33.0-37.0); Mean Corpuscular Hgb 29.7 pg (27.0-31.0); Mean Corpuscular Volume 86.6 fL (81.0-99.0); Nucleated Red Blood Cells % 0 %; Platelet Count 167 10^3/uL (130-400); Red Blood Cell Count 3.13 10^6/uL (4.20-5.40); Red Cell Dist. Width 14.3 % (11.5-14.5); White Blood Cell Count 6.1 10^3/uL (4.8-10.8)
[2023-05-22 05:20] LABS: ALT (SGPT) 11 U/L (0-35); AST (SGOT) 15 U/L (14-36); Albumin 2.2 g/dl (3.5-5.0); Alkaline Phosphatase 59 U/L (38-126); Blood Urea Nitrogen 5 mg/dl (7-17); Calcium 8.3 mg/dl (8.4-10.2); Carbon Dioxide 30 mmol/L (22-30); Chloride 105 mmol/L (98-107); Estimated Creatinine Clearance 39 ml/min; Glucose 87 mg/dl (70-99); Potassium 3.4 mmol/L (3.5-5.1); Sodium 137 mmol/L (135-145); Total Bilirubin 0.8 mg/dl (0.2-1.3); Total Protein 4.3 g/dl (6.3-8.2); eGFR > 60.00
[2023-05-22] MEDS: ZOSYN 50 IV (05:48)
[2023-05-22 07:15] VITALS: BP 159/80
--- NOTE | 2023-05-22 08:13 | W.PN.HOSP.TC ---
Addendum entered and electronically signed by Kaushik Gonzales DO 05/22/23 11:05:
Transient ASHWINI, resolved.
Original Note:
Today's Communication/Plan
-
Advance diet
Discharge
Assessment / Plan
Assessment / Plan
Gen-AAOx3, NAD
HEENT-NC, AT, anicteric, clear oral mm
Neck-supple
CV-reg, no M, +S1/S2
Lungs-clear B/L
Abd-soft, NT, ND
Ext-no edema
Musculoskeletal-no cyanosis, clubbing
Skin-warm and dry
Neuro-grossly non-focal
Psych-calm, cooperative
Hypovolemic shock -due to GI losses due to acute colitis. Shock resolved. Last dose of midodrine was 24 hours ago. Will discontinue.
Acute colitis -likely infectious in nature.� Less likely to be inflammatory.� Stool for C. difficile toxin negative. Stool culture negative. Day 3 of antibiotics. Stools are becoming more formed. No blood noted in bowel movement this morning.
Discussed with nursing.
CT abdomen pelvis shows moderate pancolitis. Advance diet to low residue, low lactose. Discussed with patient and nurse. Discharge on Augmentin.
Incidental subpleural left lower lobe groundglass pulmonary nodule measuring 6 mm.� Will need repeat noncontrast CT in 6 to 12 months as an outpatient.
Acute lower GI bleed -due to acute colitis.� Last colonoscopy was March 2019, showed multiple polyps. Path report came back with tubular adenomas as well as hyperplastic polyp. Will refer to GI after discharge.
Acute blood loss anemia -due to acute GI bleed due to acute colitis. Hemoglobin 9.3 this morning. Monitor for now. She does have baseline chronic anemia, normocytic.
Hyponatremia -likely hypovolemic.� Sodium improved.
Hypokalemia -3.4. Check magnesium. Will replete orally.
Paroxysmal atrial fibrillation -continue Eliquis.
History of stroke with left hemiparesis -associated ambulatory dysfunction.� Consult PT/OT.� She resides at an assisted living facility.
Essential hypertension -stable. Hold antihypertensives for hypotension.
Hyperlipidemia -continue Lipitor.
Full code
Dispo -medically stable for discharge back to assisted living facility today. Check CBC next week as an outpatient. Follow-up with GI and PCP. Repeat CT chest in 6 to 12 months as an outpatient.
35-minutes spent in discharge process.
Anticipated Discharge: Today
Subjective/Interval History
-
Date of Service: May 22, 2023
Patient seen and examined. No complaints.
Objective Data
-
Labs:
Laboratory Results
05/22/23
04:28
WBC 6.1
Hgb 9.3 L
Hct 27.1 L
Plt Count 167
Sodium 137
Potassium 3.4 L
Chloride 105
Carbon Dioxide 30
BUN 5 L
Creatinine 0.9
Glucose 87
Calcium 8.3 L
Total Bilirubin 0.8
AST 15
ALT 11
Alkaline Phosphatase 59
Vital Signs:
Vital Signs
Temp Pulse Resp BP Pulse Ox
97.7 F 58 14 159/80 97
05/22/23 07:15 05/22/23 07:15 05/22/23 07:15 05/22/23 07:15 05/22/23 07:15
I&O
05/21/23 05/22/23 05/23/23
06:59 06:59 06:59
Intake Total 3730.1 / 4210.1 2565 / 2565
Output Total 1900 / 1900 2550 / 2550
Balance 1830.1 / 2310.1
Review of Systems
-
History Source: Patient
All other systems: Reviewed and negative
--- NOTE | 2023-05-22 08:22 | W.DS.TRANS ---
DC Summary - Net [employer]
-
Discharge Instructions:
Discharge Diagnosis/Procedures Acute colitis, acute anemia, hypokalemia,
pulmonary nodule
Diet Low Residue,Other diet
Additional Diets Low lactose
Activity As tolerated
Driving Restrictions No driving
Bathing Restrictions None
Other Services VN
Instructions:
Stand-Alone Forms:
Changes to Home Medications: No
Discharge Medications:
DC Medications w/original date entered in [place]
cyanocobalamin (vitamin B-12) 1,000 mcg tablet 1,000 mcg PO DAILY #90 tabs 12/25/20
losartan 100 mg tablet 100 mg PO DAILY #90 tabs 12/25/20
melatonin 5 mg tablet 5 mg PO HS #90 tabs 12/25/20
acetaminophen 325 mg tablet 650 mg PO Q6HPRN PRN mild pain 05/19/23
apixaban 5 mg tablet (Eliquis) 5 mg PO Q12H@0800,2100 Blood Clot Prevention/Tx 05/19/23
atorvastatin 80 mg tablet 80 mg PO HS High Cholesterol 05/19/23
calcium carbonate 500 mg calcium (1,250 mg) tablet (Oyster Shell Calcium 500) 500 mg PO DAILY Supplement 05/19/23
cholecalciferol (vitamin D3) 25 mcg (1,000 unit) tablet 25 mcg PO DAILY Supplement 05/19/23
docusate sodium 100 mg capsule 100 mg PO BID PRN constipation 05/19/23
escitalopram oxalate 10 mg tablet 10 mg PO DAILY Mental Health/Anxiety 05/19/23
guaifenesin 100 mg/5 mL oral liquid (Tussin) 200 mg PO Q4H PRN cough 05/19/23
hydrocortisone 2.5 % topical cream with perineal applicator (Proctozone-HC) 1 applic TN .2-4 TIMES A DAY PRN hemorrhoids 05/19/23
loperamide 2 mg tablet (Imodium A-D) 2 mg PO Q8HPRN PRN loose stools 05/19/23
lorazepam 0.5 mg tablet 0.5 mg PO HS Mental Health/Anxiety 05/19/23
magnesium hydroxide 400 mg/5 mL oral suspension (Milk of Magnesia) 30 ml PO DAILY PRN if no BM for 3 days 05/19/23
metoprolol succinate 50 mg tablet,extended release 24 hr 50 mg PO DAILY Heart Disease/Condition 05/19/23
miconazole nitrate 2 % topical cream 1 applic topical BID PRN irritation 05/19/23
mirabegron 50 mg tablet,extended release 24 hr (Myrbetriq) 50 mg PO DAILY Urinary Issue 05/19/23
naloxone 4 mg/actuation nasal spray 1 spray intranasal Q2M PRN opioid overdose 05/19/23
oxycodone 5 mg tablet 5 mg PO Q6H PRN moderate pain 05/19/23
polyethylene glycol 3350 17 gram oral powder packet 17 g PO DAILY PRN constipation 05/19/23
trazodone 150 mg tablet 150 mg PO HS Mental Health/Anxiety 05/19/23
amoxicillin 875 mg-potassium clavulanate 125 mg tablet 1 tab PO BID #10 tabs 05/22/23
Home Medication Changes
Pending Results: No
[2023-05-22 08:38] LABS: Magnesium 1.8 mg/dl (1.6-2.3)
[2023-05-22] MEDS: VITAMIN D3 (cholecalciferol) 25 MCG PO (09:11)
[2023-05-22] MEDS: OSCAL CAL 500 500 MG PO (09:11)
[2023-05-22] MEDS: DETROL LA 4 MG PO (09:11)
[2023-05-22] MEDS: TOPROL XL 50 MG PO (09:11)
[2023-05-22] MEDS: VITAMIN B-12 1000 MCG PO (09:12)
[2023-05-22] MEDS: LEXAPRO 10 MG PO (09:12)
[2023-05-22] MEDS: ELIQUIS 5 MG PO (09:12)
[2023-05-22] MEDS: KCL 40 MEQ PO (09:12)
--- NOTE | 2023-05-22 11:00 | PN.CDI ---
CDI
- -
CDI:
Physician Documentation Request
Admit Date: 05/19/23 19:00
Dear Doctor Christian,
Patient admitted for acute colitis.
Laboratory Tests
05/19/23 05/20/23 05/21/23
13:06 02:00 04:42
Creatinine 0.9 1.2 H 0.9
Clarify which of the following accurately represents the patient's renal status:
ASHWINI
Abnormal lab values insignificant
Other
Criteria for ASHWINI*
1 Increase in serum creatinine by > or = to 0.3 mg/dL (> or = to 26.5 micromol/L) within 48 hours, OR
2 Increase in serum creatinine to > or = to 1.5 times baseline, which is known or presumed to have occurred within 7 days, OR
3 Urine volume < 0.5 nL/kg/hour for six hours
Use of terms such as suspected, likely, concern for, or probable (associated with a specific diagnosis that is being evaluated, monitored, or treated as if it exists) are acceptable and can be coded in the inpatient setting, when documented at the
time of discharge.
Thank you,
Wilma Pantoja RN, BSN
CDI Specialist
Available via [place] text
Please use your independent medical judgment in providing your response.
*Source: Kidney Disease: Improving Global Outcomes (KDIGO) 2012
--- NOTE | 2023-05-22 11:29 | CM ---
Patient has been medically cleared for discharge back to [facility] with [facility] services. Pantoja will resume PT/OT in home. They request a copy of discharge summary faxed to #[phone]. Son will transport home.
--- NOTE | 2023-05-22 12:50 | PTCARENOTE ---
Called placed to [facility] which went to voicemail x3. Tele and Iv access removed. Discharge instructions discussed with Pt. Transport wheeled Pt to exit, son to drive Pt to [facility].
--- NOTE | 2023-06-01 08:27 | OID.L.PAT ---
Pulmonary Nodule Pat Letter
- -
06/01/23
CALIN LOWE
[address]
[facility]
[place], [place] [address]
Deanoam LAYTON,
A pulmonary nodule was seen on an imaging study done by [facility]. This was reviewed by the [facility] Pulmonary Nodule Advisory Board and the following recommendation was made:
Recommendation: Follow up Chest CT in 3 months
If you have any questions, please do not hesitate to contact your primary care physician. If you are in need of a Physician, you can go to [email or web address] and click on 'Find a Provider'. Type 'Family Medicine' in the search.
Oncology Nurse Navigator
[facility]
[phone]
--- NOTE | 2023-06-01 08:27 | OID.L.REC ---
Pulmonary Nodule Follow Up
- Recommendation
06/01/23
Pulmonary Nodule Review Recommendations
Your patient, CALIN LOWE, had a pulmonary nodule seen on a CT Abdomen/Pelvis done on 05/19/23 in the [facility] Emergency Room.
This was reviewed by the [facility] Pulmonary Nodule Advisory Board and the following recommendation was made:
Recommendation: Follow up Chest CT in 3 months
If you have any questions please do not hesitate to contact us.
Sincerely,
Oncology Nurse Navigator
[facility]
[phone]
== END 2023-05-22 12:54 | disposition home or self-care (01) | DRG 391 ==
LOC: 2 NORTH 19:00
PROVIDERS: Nurse Practitioner Gerontology; Physician Assistant; ADMITTING PHYSICIAN Hospitalist; EMERGENCY PHYSICIAN Student in an Organized Health Care Education/Training Program; FAMILY PHYSICIAN Hospitalist
DX: A09 Infectious gastroenteritis and colitis, unspecified (principal); R57.1 Hypovolemic shock; E87.1 Hypo-osmolality and hyponatremia; D68.32 Hemorrhagic disorder due to extrinsic circulating anticoagulants; D62 Acute posthemorrhagic anemia; I69.354 Hemiplegia and hemiparesis following cerebral infarction affecting left non-dominant side; E87.6 Hypokalemia; I48.0 Paroxysmal atrial fibrillation; I10 Essential (primary) hypertension; E78.5 Hyperlipidemia, unspecified; G47.33 Obstructive sleep apnea (adult) (pediatric); F41.9 Anxiety disorder, unspecified; Z87.891 Personal history of nicotine dependence; Z79.01 Long term (current) use of anticoagulants
CPT/HCPCS: 74177; 80053; 81003; 81015; 82962; 83605; 83735; 85014; 85018; 85025; 85027; 86850; 86900; 86901; 87045; 87046; 87070; 87324; 87427; 87449; 87798; 93005; 96361; 96374; 97162; 97167; 99285; Q9967